=== PATIENT | female | born 1990 | race American Indian/Alaskan Native ===

== ENCOUNTER 2021-05-11 08:01 | Inpatient (IN) | payer SELFPAY ==
[2021-05-11] MEDS ORDERED: OXYTOCIN DRIP 30,000 MILLIUNITS/500 ML BAG IV ONE (08:24)
[2021-05-11] MEDS ORDERED: LACTATED RINGERS 1,000 ML ONE (08:24)
[2021-05-11] MEDS ORDERED: miSOPROStol 200 MCG TAB ONE ×2 (08:25→12:11)
[2021-05-11] MEDS ORDERED: CARBOPROST TROMETHAMINE 250 MCG/1 ML INJ IM PRN (08:44)
[2021-05-11] MEDS ORDERED: ePHEDrine SULFATE 50 MG/1 ML INJ IV PRN (08:44)
[2021-05-11] MEDS ORDERED: OXYTOCIN 10 UNIT/1 ML INJ IM PRN (08:44)
[2021-05-11] MEDS ORDERED: fentaNYL 100 MCG/2 ML INJ IV PRN (08:44)
[2021-05-11] MEDS ORDERED: ACETAMINOPHEN 325 MG TAB PO PRN (08:44)
[2021-05-11] MEDS ORDERED: AMPICILLIN/NS 2 GM/100 ML 2 GM/100 ML BAG IV ONE (08:44)
[2021-05-11] MEDS ORDERED: LIDOCAINE (2%) 20 MG/1 ML VIAL 20 ML MDV INFILTRATI ONE (08:44)
[2021-05-11] MEDS ORDERED: miSOPROStol 200 MCG TAB PR PRN (08:44)
[2021-05-11] MEDS ORDERED: TERBUTALINE 1 MG/1 ML INJ SUB-Q PRN (08:44)
[2021-05-11] MEDS ORDERED: METHYLERGONOVINE MALEATE 0.2 MG/ML VIAL IM PRN (08:44)
[2021-05-11] MEDS ORDERED: LOPERAMIDE 2 MG CAP PO PRN (08:44)
[2021-05-11] MEDS ORDERED: MINERAL OIL 30 ML ORAL LIQD PO PRN (08:44)
[2021-05-11] MEDS ORDERED: NalbUPHINE 10 MG/1 ML INJ IV PRN (08:44)
[2021-05-11] MEDS ORDERED: LACTATED RINGERS 1,000 ML IV SCH (08:45)
[2021-05-11] MEDS ORDERED: WITCH HAZEL/ GLYCERIN PAD TP PRN (08:53)
[2021-05-11] MEDS ORDERED: BENZOCAINE/MENTHOL 20/0.5% TOP SPRAY 56 GM TP PRN (08:53)
[2021-05-11] MEDS ORDERED: MAGNESIUM HYDROXIDE (MOM) ORAL LIQD UDC PO PRN (08:53)
[2021-05-11] MEDS ORDERED: ONDANSETRON 4 MG/2 ML INJ IV PRN (08:53)
[2021-05-11] MEDS ORDERED: LANOLIN/ZINC/DIMETHICONE (LANSINOH) 7 GM TP PRN ×2 (08:53)
--- NOTE | 2021-05-11 08:53 | Procedure Note ---
OB Delivery Note - Delivery Date of Delivery: 05/11/21 Surgeon: TORSTEN ONEILL Estimated blood loss: 500cc - Vaginal Delivery presentation: vertex Delivery position: OA Intrapartum events: labor-<37 weeks (NICU nurses report probable gestational age 36 weeks based on 's exam), preeclampsia, precipitous labor- <3hr, other(please specify) (probable placental abruption (large gush of blood at time of delivery of head and adherent clot seen on placenta at time of placental delivery) Delivery induction: none Delivery monitor: external FHT, external uterine Route of delivery: Delivery placenta: spontaneous (enlarged vessel noted on side of placenta near cord insertion into placenta) Delivery cord: 3 umbilical vessels Episiotomy: none Delivery laceration: 1st degree (not bleeding and patient declined repair) Anesthesia: none Delivery comments: Precipitous spontaneous vaginal delivery at 08:23 of liveborn female infant weighing 5 lb. over first degree perineal laceration with apgars of 8/9. Patient with elevated blood pressure upon presentation to L&D, advanced cervical dilation with urge to push, and no care. Small amount of vaginal bleeding seen just prior to delivery and large gush of blood accompanied delivery of head (probable placental abruption). of baby was atraumatic and baby was placed skin to skin with mom immediately after delivery. Baby was dried with warm towels and baby was bulb suctioned. Spontaneous cry and respirations. 3 vessel cord was double clamped and cut (delayed clamping) and baby was taken to radiant warmer for evaluation. Cord blood obtained. Spontaneous delivery of intact placenta and membranes at 08:26. Clot adherent to placenta noted at time of placental delivery. EBL 500 cc. Pitocin to IV fluids after delivery of placenta and cytotec 800 mcg given rectally to control bleeding. Fundus firm and midline at umbilicus. Small first degree perineal laceration noted; not bleeding and patient declined repair. Vaginal sweep negative. Sponge count correct. Magnesium sulfate started due to elevated blood pressure. UA, UDS, preeclamptic labs, and full panel ordered. Placenta to pathology. Consulted Dr. Baker re: this patient.
--- NOTE | 2021-05-11 08:53 | History and Physical Report ---
History of Present Illness Date of examination: 05/11/21 Date of admission: 05/11/21 08:01 Chief complaint: Contractions History of present illness: 30 year old presents in active precipitous labor. No care. Reports history of 2 FT vaginal births without complications. labs drawn upon admission. Past History Past Medical History: no pertinent history Past Surgical History: no surgical history [facility] RIDER History: denies: chlamydia, gonorrhea, hepatitis B, hepatitis C, herpes, HIV, syphilis, trichomonas Family/Genetic History: none Social history: lives with family, full code. denies: smoking, alcohol abuse, prescription drug abuse, IV drug use - Obstetrical History Expected Date of Delivery: 05/27/21 (patient states this EDC was given to her based on 33 week US done at [facility]) Actual Gestation: 37 Week(s) 5 Day(s) : 3 Para: 2 Hx # Term Pregnancies: 2 Number of Pregnancies: 0 Spontaneous Abortions: 0 Induced : 0 Number of Living Children: 2 Medications and Allergies Allergies Allergy/AdvReac Type Severity Reaction Status Date / Time No Known Allergies Allergy Verified 05/11/21 08:35 Active Meds: Active Medications Acetaminophen (Acetaminophen 325 Mg Tab) 650 mg PO Q4H PRN PRN Reason: Pain, Mild (1-3) Carboprost Tromethamine (Carboprost Tromethamine 250 Mcg/1 Ml Inj) 250 mcg IM ONCE PRN PRN Reason: Uterine Bleeding Ephedrine Sulfate (Ephedrine Sulfate 50 Mg/1 Ml Inj) 10 mg IV Q2M PRN PRN Reason: Hypotension Fentanyl (Fentanyl 100 Mcg/2 Ml Inj) 100 mcg IV Q2H PRN PRN Reason: Pain,Severe (7-10) LABOR PAIN Lactated Ringer's (Lactated Ringers) 1,000 mls @ 125 mls/hr IV DIRECT FRED Oxytocin/Sodium Chloride (Pitocin/Ns 30 Unit/500ml) 30 units in 500 mls @ 40 mls/hr IV TITR FRED; Protocol Ampicillin Sodium (Ampicillin/Ns 2 Gm/100 Ml) 2 gm in 100 mls @ 100 mls/hr IV ONCE ONE; Protocol Stop: 05/11/21 09:43 Lidocaine (Lidocaine (2%) 20 Mg/1 Ml Vial 20 Ml Mdv) 20 ml INFILTRATI ONCE ONE Stop: 05/11/21 08:45 Loperamide HCl (Loperamide 2 Mg Cap) 2 mg PO ONCE PRN PRN Reason: give with Hemabate Methylergonovine Maleate (Methylergonovine Maleate 0.2 Mg/Ml Vial) 0.2 mg IM ONCE PRN PRN Reason: Uterine Bleeding Mineral Oil (Mineral Oil 30 Ml Oral Liqd) 30 ml PO QHS PRN PRN Reason: Constipation Misoprostol (Misoprostol 200 Mcg Tab) 800 mcg NJ ONCE PRN PRN Reason: Uterine Bleeding Nalbuphine HCl (Nalbuphine 10 Mg/1 Ml Inj) 10 mg IV Q2H PRN PRN Reason: Pain, Moderate (4-6) Oxytocin (Oxytocin 10 Unit/1 Ml Inj) 10 unit IM ONCE PRN PRN Reason: Uterine Bleeding Terbutaline Sulfate (Terbutaline 1 Mg/1 Ml Inj) 0.25 mg SUB-Q ONCE PRN PRN Reason: Hyperstimulation/Hypertonicity Review of Systems All systems: negative (contractions, leaking of water while en route to hospital) - Vital Signs Vital signs: Vital Signs Pulse BP 103 H 163/111 05/11/21 08:09 05/11/21 08:09 Temp Pulse Resp BP Pulse Ox 66 149/87 99 05/11/21 08:50 05/11/21 08:50 05/11/21 08:50 - Physical Exam Abdomen: Positive: other (contractions firm) Genitourinary (Female): Positive: normal external genitalia, normal perenium. Negative: perineal/vulvar lesions Vagina: Positive: other (small amount of blood seen at introitus) Uterus: Positive: enlarged Anus/Rectum: Positive: normal perianal skin Extremities: Negative: tenderness, edema - Obstetrical FHR: category 2 Uterine Contraction Monitor Mode: External Cervical Dilatation: 9 Cervical Effacement Percentage: 90 station: 0 Uterine Contraction Pattern: Regular Uterine Contraction Intensity: Strong/Firm Results All other labs normal. Assessment and Plan A: of unknown gestation, delivered soon after arrival in labor room. Active labor with delivery imminent. No care. GBS unknown. Elevated blood pressure. P: Admit. Full panel, preeclamptic labs, drug screen. Serial BPs. Magnesium sulfate per protocol. GBS prophylaxis (2 gram ampicillin IV) started before delivery.
[2021-05-11] MEDS ORDERED: OXYTOCIN DRIP 30 UNITS/500 ML BAG IV SCH (09:00)
[2021-05-11] MEDS ORDERED: MAGNESIUM SULFATE 4 GM/100 ML BAG IV ONE (09:14)
[2021-05-11] MEDS ORDERED: MAGNESIUM SULFATE 40GM/1000ML 40 GM/1,000 ML BAG IV SCH (10:00)
[2021-05-11 10:29] LABS: Hematocrit 39.2 % (30.3-42.9); Mean Corpuscular HGB Conc 33 % (30-34); Mean Corpuscular Volume 90 fl (79-97); Platelet Count 212 K/mm3 (140-440); Red Blood Count 4.35 M/mm3 (3.65-5.03); Red Cell Distribution Width 13.2 % (13.2-15.2)
[2021-05-11 10:38] LABS: Alanine Aminotransferase 6 units/L (7-56); Albumin 3.4 g/dL (3.9-5); Blood Urea Nitrogen 9 mg/dL (7-17); Hemolysis Index 76; Uric Acid 3.3 mg/dL (3.5-7.6)
[2021-05-11 10:39] LABS: BUN/Creatinine Ratio 13
--- NOTE | 2021-05-11 11:08 | Event Note ---
<MAITORSTEN L. - Last Filed: 05/11/21 12:26> Date: 05/11/21 Called to room; nurse states patient is bleeding. Large amount of lochia rubra seen on chux pad. Fundus firm and midline at umbilicus. Garay is in place and is draining clear yellow urine. Stat H&H and stat pelvic US ordered. Patient has received Cytotec 800 mcg rectally, Pitocin IV (she is on second bag of Pitocin). Hemabate and IM Methergine given. Magnesium sulfate turned off. SSE exam performed; no cervical laceration noted. Notified Dr. Li of all of the above and Dr. Li states to put patient on oral Methergine 0.2 mg po every 8 hours (order put in). Patient continued to have bleeding; bimanual compression done. Fundus firm and midline; clots in BUCK removed. EBL [address] Li called due to continued bleeding and she came to bedside and she also examined patient. Cytotec 200 mcg given orally. Patient now has small amount of lochia, fundus is firm, and vital signs are stable. Patient to remain on L&D overnight. <ANGEL LI - Last Filed: 05/11/21 17:31> I was present for full evaluation and agree with above. Pt hemodynamically stable, suspect lower uterine segment atony. Kenneth Li MD
[2021-05-11] MEDS: IBUPROFEN 800 MG TAB PO SCH ×2 (11:33→20:55)
[2021-05-11 11:53] LABS: Hematocrit 34.6 % (30.3-42.9); Hemoglobin 11.1 gm/dl (10.1-14.3)
[2021-05-11 11:56] LABS: Hepatitis C Virus Antibody Non-Reactive (NonReactive)
[2021-05-11] MEDS ORDERED: MORPHINE 2 MG/1 ML INJ IV ONE ×2 (12:00→12:07)
[2021-05-11] MEDS ORDERED: METHYLERGONOVINE MALEATE 0.2 MG/ML VIAL IM ONE (12:00)
[2021-05-11] MEDS ORDERED: SODIUM CHLORIDE 0.9% 500 ML 500 ML IV NR (12:00)
[2021-05-11 12:03] LABS: Bilirubin,Urine NEG (Negative); Blood,Urine MOD (Negative); Color,Urine Yellow (Yellow); Mucus,Urine FEW /HPF; Protein,Urine <15 mg/dL mg/dL (Negative)
[2021-05-11 12:08] LABS: Amphetamine Screen,Urine Negative; Benzodiazepines Screen,Urine Negative; Cannabinoid Screen,Urine Negative; Methadone Screen,Urine Negative; Opiate Screen,Urine Negative
--- NOTE | 2021-05-11 12:17 | Ultrasound Report ---
ULTRASOUND PELVIS INDICATION: hemorrhage. TECHNIQUE: Transabdominal. Duplex Color Doppler used: Yes. COMPARISON: None available FINDINGS: Uterus: Present. Size: 22.1 x 11.7 x 11.5. cm. Endometrial complex: Normal measuring 0.5 cm. Complex area at the lower uterine segment measuring 8.2 x 6.8 x 6 cm. Mass lesions: None. Additional findings: None. Right Ovary --nonvisualized. Left Ovary--nonvisualized. Urinary Bladder: Normal. Free Fluid: None. Additional Findings: None. IMPRESSION: 1. Large, uterus. 2. Complex area at the lower uterine segment is likely a large blood clot unless the patient has a kn own fibroid. 3. Ovaries nonvisualized. No gross adnexal abnormality. Signer Name: James Vasquez MD Signed: 05/11/2021 12:12 PM Workstation Name: [id number]
[2021-05-11 12:29] LABS: Cocaine Screen,Urine Positive
[2021-05-11] MEDS: METHYLERGONOVINE 0.2 MG TABLET PO SCH (20:55)
[2021-05-11 20:59] LABS: Hematocrit 31.9 % (30.3-42.9); Hemoglobin 10.5 gm/dl (10.1-14.3)
[2021-05-11] MEDS ORDERED: HYDROcodone/ACETAMINOPHEN 5-325 MG TAB PO PRN (22:03)
[2021-05-11] MEDS: DOCUSATE SODIUM 100 MG CAP PO SCH (22:55)
[2021-05-11] MEDS: FERROUS SULFATE 325 MG TAB PO SCH (22:55)
[2021-05-12] MEDS: IBUPROFEN 800 MG TAB PO SCH ×4 (05:15→21:58)
[2021-05-12] MEDS: METHYLERGONOVINE 0.2 MG TABLET PO SCH ×3 (05:15→21:58)
--- NOTE | 2021-05-12 09:34 | Progress Note ---
Assessment and Plan PPD#1 with PPH, with asymptomatic anemia, currently on oral methergine 1. Repeat CBC for trends of hgb and wbc 2. Repeat u/s with large 8cm mass to lower uterine segment seen yesterday 3. Continue methergine for now 4. Routine PP care and discharge home in am. All questions encouraged and answered Subjective Date of service: 05/12/21 Principal diagnosis: PPD#1 with PPH Interval history: pt states she feels much better, her vag bleed has improved a lot. Denies pelvic pain. pt is breast feeding. Declines contraception. Voiding without difficulty. Denies n/v/f/c. Objective - Constitutional Vitals: Vital Signs - 12hr 05/11/21 05/11/21 05/11/21 21:31 21:32 21:35 Temperature Pulse Rate 80 80 76 Blood Pressure 125/75 O2 Sat by Pulse 99 92 Oximetry O2 Sat by Pulse Oximetry [ Anterior Bilateral Throughout] 05/11/21 05/11/21 05/11/21 21:36 21:37 21:41 Temperature Pulse Rate 78 82 66 Blood Pressure O2 Sat by Pulse 96 89 100 Oximetry O2 Sat by Pulse Oximetry [ Anterior Bilateral Throughout] 05/11/21 05/11/21 05/11/21 21:45 21:46 21:51 Temperature Pulse Rate 68 71 73 Blood Pressure 124/75 O2 Sat by Pulse 100 99 Oximetry O2 Sat by Pulse Oximetry [ Anterior Bilateral Throughout] 05/11/21 05/11/21 05/11/21 21:55 21:56 22:01 Temperature Pulse Rate 73 70 73 Blood Pressure 128/79 O2 Sat by Pulse 99 99 Oximetry O2 Sat by Pulse Oximetry [ Anterior Bilateral Throughout] 05/11/21 05/11/21 05/11/21 22:05 22:06 22:11 Temperature Pulse Rate 71 75 74 Blood Pressure 125/79 O2 Sat by Pulse 99 98 Oximetry O2 Sat by Pulse Oximetry [ Anterior Bilateral Throughout] 05/11/21 05/11/21 05/11/21 22:15 22:16 22:21 Temperature Pulse Rate 71 70 70 Blood Pressure 124/77 O2 Sat by Pulse 98 98 Oximetry O2 Sat by Pulse Oximetry [ Anterior Bilateral Throughout] 05/11/21 05/11/21 05/11/21 22:25 22:26 22:31 Temperature Pulse Rate 72 73 67 Blood Pressure 137/80 O2 Sat by Pulse 98 98 Oximetry O2 Sat by Pulse Oximetry [ Anterior Bilateral Throughout] 05/11/21 05/11/21 05/11/21 22:35 22:36 22:41 Temperature Pulse Rate 71 74 85 Blood Pressure 171/81 O2 Sat by Pulse 98 98 Oximetry O2 Sat by Pulse Oximetry [ Anterior Bilateral Throughout] 05/11/21 05/11/21 05/11/21 22:45 22:46 22:51 Temperature Pulse Rate 88 86 75 Blood Pressure 127/85 O2 Sat by Pulse 98 99 Oximetry O2 Sat by Pulse Oximetry [ Anterior Bilateral Throughout] 05/11/21 05/11/21 05/11/21 22:55 22:56 23:01 Temperature Pulse Rate 63 67 71 Blood Pressure 137/80 O2 Sat by Pulse 99 99 Oximetry O2 Sat by Pulse Oximetry [ Anterior Bilateral Throughout] 05/11/21 05/11/21 05/11/21 23:05 23:06 23:11 Temperature Pulse Rate 69 69 74 Blood Pressure 126/74 O2 Sat by Pulse 99 99 Oximetry O2 Sat by Pulse Oximetry [ Anterior Bilateral Throughout] 05/11/21 05/11/21 05/11/21 23:15 23:16 23:21 Temperature Pulse Rate 71 74 72 Blood Pressure 118/68 O2 Sat by Pulse 99 99 Oximetry O2 Sat by Pulse Oximetry [ Anterior Bilateral Throughout] 05/11/21 05/11/21 05/11/21 23:25 23:26 23:31 Temperature Pulse Rate 72 71 73 Blood Pressure 129/76 O2 Sat by Pulse 99 98 Oximetry O2 Sat by Pulse Oximetry [ Anterior Bilateral Throughout] 05/11/21 05/11/21 05/11/21 23:35 23:36 23:41 Temperature Pulse Rate 71 70 74 Blood Pressure 120/66 O2 Sat by Pulse 99 99 Oximetry O2 Sat by Pulse Oximetry [ Anterior Bilateral Throughout] 05/11/21 05/11/21 05/11/21 23:45 23:46 23:51 Temperature Pulse Rate 69 68 82 Blood Pressure 128/69 O2 Sat by Pulse 99 99 Oximetry O2 Sat by Pulse Oximetry [ Anterior Bilateral Throughout] 05/11/21 05/11/21 05/12/21 23:55 23:56 00:01 Temperature Pulse Rate 73 77 67 Blood Pressure 125/73 O2 Sat by Pulse 99 100 Oximetry O2 Sat by Pulse Oximetry [ Anterior Bilateral Throughout] 05/12/21 05/12/21 05/12/21 00:05 00:06 00:11 Temperature Pulse Rate 65 68 71 Blood Pressure 128/67 O2 Sat by Pulse 99 99 Oximetry O2 Sat by Pulse Oximetry [ Anterior Bilateral Throughout] 05/12/21 05/12/21 05/12/21 00:15 00:16 00:21 Temperature Pulse Rate 69 72 71 Blood Pressure 132/68 O2 Sat by Pulse 99 99 Oximetry O2 Sat by Pulse Oximetry [ Anterior Bilateral Throughout] 05/12/21 05/12/21 05/12/21 00:25 00:26 00:31 Temperature Pulse Rate 73 75 84 Blood Pressure 149/73 O2 Sat by Pulse 100 99 Oximetry O2 Sat by Pulse Oximetry [ Anterior Bilateral Throughout] 05/12/21 05/12/21 05/12/21 00:35 00:36 00:41 Temperature Pulse Rate 69 70 65 Blood Pressure 133/81 O2 Sat by Pulse 98 99 Oximetry O2 Sat by Pulse Oximetry [ Anterior Bilateral Throughout] 05/12/21 05/12/21 05/12/21 00:45 00:46 00:51 Temperature Pulse Rate 68 66 70 Blood Pressure 127/65 O2 Sat by Pulse 99 99 Oximetry O2 Sat by Pulse Oximetry [ Anterior Bilateral Throughout] 05/12/21 05/12/21 05/12/21 00:55 00:56 01:01 Temperature Pulse Rate 70 71 74 Blood Pressure 127/69 O2 Sat by Pulse 99 99 Oximetry O2 Sat by Pulse Oximetry [ Anterior Bilateral Throughout] 05/12/21 05/12/21 05/12/21 01:05 01:06 01:11 Temperature Pulse Rate 70 92 H 87 Blood Pressure 117/65 O2 Sat by Pulse 98 98 Oximetry O2 Sat by Pulse Oximetry [ Anterior Bilateral Throughout] 05/12/21 05/12/21 05/12/21 01:15 01:16 01:21 Temperature Pulse Rate 90 91 H 102 H Blood Pressure 115/72 O2 Sat by Pulse 98 99 Oximetry O2 Sat by Pulse Oximetry [ Anterior Bilateral Throughout] 05/12/21 05/12/21 05/12/21 01:26 01:31 01:35 Temperature Pulse Rate 90 86 66 Blood Pressure O2 Sat by Pulse 99 98 82 L Oximetry O2 Sat by Pulse Oximetry [ Anterior Bilateral Throughout] 05/12/21 05/12/21 05/12/21 01:36 01:41 01:45 Temperature Pulse Rate 88 88 88 Blood Pressure 135/80 O2 Sat by Pulse 100 100 Oximetry O2 Sat by Pulse Oximetry [ Anterior Bilateral Throughout] 05/12/21 05/12/21 05/12/21 01:46 01:51 01:55 Temperature Pulse Rate 89 89 85 Blood Pressure 114/73 O2 Sat by Pulse 98 99 Oximetry O2 Sat by Pulse Oximetry [ Anterior Bilateral Throughout] 05/12/21 05/12/21 05/12/21 01:56 02:01 02:05 Temperature Pulse Rate 87 87 93 H Blood Pressure 118/86 O2 Sat by Pulse 97 98 Oximetry O2 Sat by Pulse Oximetry [ Anterior Bilateral Throughout] 05/12/21 05/12/21 05/12/21 02:06 02:11 02:15 Temperature Pulse Rate 89 79 67 Blood Pressure 122/72 O2 Sat by Pulse 98 97 Oximetry O2 Sat by Pulse Oximetry [ Anterior Bilateral Throughout] 05/12/21 05/12/21 05/12/21 02:16 02:19 02:21 Temperature Pulse Rate 81 42 L 71 Blood Pressure O2 Sat by Pulse 99 90 99 Oximetry O2 Sat by Pulse Oximetry [ Anterior Bilateral Throughout] 05/12/21 05/12/21 05/12/21 02:25 02:26 02:31 Temperature Pulse Rate 82 69 76 Blood Pressure 123/78 O2 Sat by Pulse 100 99 Oximetry O2 Sat by Pulse Oximetry [ Anterior Bilateral Throughout] 05/12/21 05/12/21 05/12/21 02:35 02:36 02:41 Temperature Pulse Rate 74 74 76 Blood Pressure 128/76 O2 Sat by Pulse 99 99 Oximetry O2 Sat by Pulse Oximetry [ Anterior Bilateral Throughout] 05/12/21 05/12/21 05/12/21 02:45 02:46 02:51 Temperature Pulse Rate 77 74 77 Blood Pressure 121/76 O2 Sat by Pulse 100 99 Oximetry O2 Sat by Pulse Oximetry [ Anterior Bilateral Throughout] 05/12/21 05/12/21 05/12/21 02:55 02:56 03:01 Temperature Pulse Rate 86 72 83 Blood Pressure 129/78 O2 Sat by Pulse 100 99 Oximetry O2 Sat by Pulse Oximetry [ Anterior Bilateral Throughout] 05/12/21 05/12/21 05/12/21 03:05 03:06 03:11 Temperature Pulse Rate 75 85 71 Blood Pressure 143/85 O2 Sat by Pulse 98 98 Oximetry O2 Sat by Pulse Oximetry [ Anterior Bilateral Throughout] 05/12/21 05/12/21 05/12/21 03:15 03:16 03:21 Temperature Pulse Rate 72 78 76 Blood Pressure 127/73 O2 Sat by Pulse 99 98 Oximetry O2 Sat by Pulse Oximetry [ Anterior Bilateral Throughout] 05/12/21 05/12/21 05/12/21 03:25 03:26 03:31 Temperature Pulse Rate 73 77 76 Blood Pressure 124/72 O2 Sat by Pulse 98 99 Oximetry O2 Sat by Pulse Oximetry [ Anterior Bilateral Throughout] 05/12/21 05/12/21 05/12/21 03:35 03:36 03:41 Temperature Pulse Rate 74 71 80 Blood Pressure 119/75 O2 Sat by Pulse 99 98 Oximetry O2 Sat by Pulse Oximetry [ Anterior Bilateral Throughout] 05/12/21 05/12/21 05/12/21 03:45 03:46 03:51 Temperature Pulse Rate 80 84 83 Blood Pressure 119/74 O2 Sat by Pulse 98 97 Oximetry O2 Sat by Pulse Oximetry [ Anterior Bilateral Throughout] 05/12/21 05/12/21 05/12/21 03:55 03:56 04:01 Temperature Pulse Rate 79 86 93 H Blood Pressure 125/74 O2 Sat by Pulse 97 97 Oximetry O2 Sat by Pulse Oximetry [ Anterior Bilateral Throughout] 05/12/21 05/12/21 05/12/21 04:05 04:06 04:11 Temperature Pulse Rate 91 H 100 H 93 H Blood Pressure 121/71 O2 Sat by Pulse 94 98 97 Oximetry O2 Sat by Pulse Oximetry [ Anterior Bilateral Throughout] 05/12/21 05/12/21 05/12/21 04:15 04:16 04:21 Temperature Pulse Rate 88 90 89 Blood Pressure 119/70 O2 Sat by Pulse 97 98 Oximetry O2 Sat by Pulse Oximetry [ Anterior Bilateral Throughout] 05/12/21 05/12/21 05/12/21 04:25 04:26 04:31 Temperature Pulse Rate 88 91 H 94 H Blood Pressure 116/68 O2 Sat by Pulse 92 98 98 Oximetry O2 Sat by Pulse Oximetry [ Anterior Bilateral Throughout] 05/12/21 05/12/21 05/12/21 04:35 04:36 04:41 Temperature Pulse Rate 76 80 80 Blood Pressure 117/67 O2 Sat by Pulse 98 99 Oximetry O2 Sat by Pulse Oximetry [ Anterior Bilateral Throughout] 05/12/21 05/12/21 05/12/21 04:45 04:46 04:51 Temperature Pulse Rate 82 87 91 H Blood Pressure 108/63 O2 Sat by Pulse 99 99 Oximetry O2 Sat by Pulse Oximetry [ Anterior Bilateral Throughout] 05/12/21 05/12/21 05/12/21 04:55 04:56 05:01 Temperature 99.0 F Pulse Rate 88 90 84 Blood Pressure 117/62 O2 Sat by Pulse 99 99 Oximetry O2 Sat by Pulse Oximetry [ Anterior Bilateral Throughout] 05/12/21 05/12/21 05/12/21 05:05 05:06 05:11 Temperature Pulse Rate 76 72 79 Blood Pressure 130/89 O2 Sat by Pulse 100 100 Oximetry O2 Sat by Pulse Oximetry [ Anterior Bilateral Throughout] 05/12/21 05/12/21 05/12/21 05:15 05:16 05:21 Temperature Pulse Rate 84 87 95 H Blood Pressure 114/68 O2 Sat by Pulse 100 100 Oximetry O2 Sat by Pulse Oximetry [ Anterior Bilateral Throughout] 05/12/21 05/12/21 05/12/21 05:25 05:26 05:31 Temperature Pulse Rate 78 83 85 Blood Pressure 120/72 O2 Sat by Pulse 99 99 Oximetry O2 Sat by Pulse Oximetry [ Anterior Bilateral Throughout] 05/12/21 05/12/21 05/12/21 05:35 05:36 05:41 Temperature Pulse Rate 86 84 84 Blood Pressure 109/63 O2 Sat by Pulse 99 99 Oximetry O2 Sat by Pulse Oximetry [ Anterior Bilateral Throughout] 05/12/21 05/12/21 05/12/21 05:45 05:46 05:51 Temperature Pulse Rate 76 83 85 Blood Pressure 108/66 O2 Sat by Pulse 100 100 Oximetry O2 Sat by Pulse Oximetry [ Anterior Bilateral Throughout] 05/12/21 05/12/21 05/12/21 05:55 05:56 06:01 Temperature Pulse Rate 83 87 87 Blood Pressure 127/73 O2 Sat by Pulse 100 100 Oximetry O2 Sat by Pulse Oximetry [ Anterior Bilateral Throughout] 05/12/21 05/12/21 05/12/21 06:05 06:06 06:11 Temperature Pulse Rate 76 82 81 Blood Pressure 124/73 O2 Sat by Pulse 99 100 Oximetry O2 Sat by Pulse Oximetry [ Anterior Bilateral Throughout] 05/12/21 05/12/21 05/12/21 06:15 06:16 06:21 Temperature Pulse Rate 73 75 83 Blood Pressure 124/75 O2 Sat by Pulse 99 100 Oximetry O2 Sat by Pulse Oximetry [ Anterior Bilateral Throughout] 05/12/21 05/12/21 05/12/21 06:25 06:26 06:31 Temperature Pulse Rate 71 83 79 Blood Pressure 123/75 O2 Sat by Pulse 99 99 Oximetry O2 Sat by Pulse Oximetry [ Anterior Bilateral Throughout] 05/12/21 05/12/21 05/12/21 06:35 06:36 06:41 Temperature Pulse Rate 80 86 80 Blood Pressure 138/82 O2 Sat by Pulse 100 99 Oximetry O2 Sat by Pulse Oximetry [ Anterior Bilateral Throughout] 05/12/21 05/12/21 05/12/21 06:45 06:46 06:51 Temperature Pulse Rate 81 91 H 77 Blood Pressure 138/92 O2 Sat by Pulse 100 100 Oximetry O2 Sat by Pulse Oximetry [ Anterior Bilateral Throughout] 05/12/21 05/12/21 05/12/21 06:55 06:56 07:01 Temperature Pulse Rate 91 H 97 H 92 H Blood Pressure 118/81 O2 Sat by Pulse 97 97 Oximetry O2 Sat by Pulse Oximetry [ Anterior Bilateral Throughout] 05/12/21 05/12/21 05/12/21 07:05 07:06 07:11 Temperature Pulse Rate 104 H 96 H 94 H Blood Pressure 119/86 O2 Sat by Pulse 91 99 99 Oximetry O2 Sat by Pulse Oximetry [ Anterior Bilateral Throughout] 05/12/21 05/12/21 05/12/21 07:15 07:16 07:21 Temperature Pulse Rate 86 107 H 91 H Blood Pressure 125/88 O2 Sat by Pulse 94 98 98 Oximetry O2 Sat by Pulse 98 Oximetry [ Anterior Bilateral Throughout] 05/12/21 07:25 Temperature Pulse Rate 93 H Blood Pressure 114/74 O2 Sat by Pulse 94 Oximetry O2 Sat by Pulse Oximetry [ Anterior Bilateral Throughout] General appearance: Present: no acute distress - Neck Neck: normal ROM - Respiratory Respiratory effort: normal - Breasts Breasts: deferred - Cardiovascular Rhythm: other (mild tacchycardia) Extremities: No edema - Gastrointestinal General gastrointestinal: Present: soft, non-tender - Genitourinary Female genitourinary: other (Fundus firm, non-tender at the umbilicus; Lochia small with dark brown, non-active bleed) - Neurologic Neurologic: moves all extremities - Psychiatric Psychiatric: cooperative - Labs CBC & Chem 7: 05/11/21 20:32 05/11/21 08:30 Labs: Abnormal lab results 05/11/21 05/11/21 05/11/21 Range/Units 08:19 08:30 11:29 WBC 11.2 H (4.5-11.0) K/mm3 Carbon Dioxide 17 L (22-30) mmol/L Uric Acid 3.3 L (3.5-7.6) mg/dL ALT 6 L (7-56) units/L Alkaline Phosphatase 163 H (35-129) units/L Lactate Dehydrogenase 359 H (91-180) units/L Albumin 3.4 L (3.9-5) g/dL Crossmatch See Detail Medications & Allergies - Medications Allergies/Adverse Reactions: Allergies No Known Allergies Allergy (Verified 05/11/21 08:35) Active Medications: Generic Name Dose Route Start Last Admin Trade Name Freq PRN Reason Stop Dose Admin Acetaminophen 650 mg 05/11/21 08:44 Acetaminophen 325 Mg Tab PO Q4H PRN Pain, Mild (1-3) Hydrocodone Bitart/Acetaminophen 1 each 05/11/21 22:03 Hydrocodone/Acetaminophen 5-325 Mg Tab PO Q6H PRN Pain, Moderate (4-6) Benzocaine/Menthol 1 spray 05/11/21 08:53 Benzocaine/Menthol 20/0.5% Top [place] 56 Gm TP PRN PRN Episiotomy Pain Docusate Sodium 100 mg 05/11/21 10:00 05/11/21 22:55 Docusate Sodium 100 Mg Cap PO 100 mg BID FRED Administration Ferrous Sulfate 325 mg 05/11/21 13:00 05/11/21 22:55 Ferrous Sulfate 325 Mg Tab PO 325 mg BID FRED Administration Oxytocin/Sodium Chloride 30 units in 500 mls @ 40 mls/hr 05/11/21 09:00 05/11/21 09:35 Pitocin/Ns 30 Unit/500ml IV 60 mls/hr TITR FRED 60 mls/hr Administration Protocol Ibuprofen 800 mg 05/11/21 09:00 05/12/21 05:15 Ibuprofen 800 Mg Tab PO 800 mg Q6H FRED Administration Labetalol HCl 100 mg 05/11/21 10:00 05/12/21 00:35 Labetalol 100 Mg Tab PO 100 mg BID FRED Administration Methylergonovine Maleate 0.2 mg 05/11/21 19:00 05/12/21 05:15 Methylergonovine 0.2 Mg Tablet PO 05/13/21 11:01 0.2 mg Q8H FRED Administration Multi-Ingredient Ointment 1 applic 05/11/21 08:53 Lanolin/Zinc/Dimethicone (Lansinoh) 7 Gm TP PRN PRN Sore Nipples Multivitamins/Iron/Calcium 1 each 05/11/21 10:00 [id number] Fumarate-Folic Acid Vit Tab PO QDAY [facility] Ondansetron HCl 4 mg 05/11/21 08:53 05/11/21 11:12 Ondansetron 4 Mg/2 Ml Inj IV 4 mg Q8H PRN Administration Nausea And Vomiting Oxytocin 10 unit 05/11/21 08:44 Oxytocin 10 Unit/1 Ml Inj IM ONCE PRN Uterine Bleeding Sodium Chloride 10 ml 05/11/21 09:00 Sodium Chloride 0.9% 10 Ml Flush Syringe IV 05/19/21 08:59 PRN NR Witch Bettina/Glycerin 1 each 05/11/21 08:53 Witch Bettina/ Glycerin Pad TP PRN PRN Hemorrhoid/cleansing/soothing
[2021-05-12] MEDS: FERROUS SULFATE 325 MG TAB PO SCH ×2 (11:55→21:58)
[2021-05-12] MEDS: PRENATAL VIT27-FE FUMARATE-FOLIC ACID VIT TAB PO SCH (11:55)
[2021-05-12] MEDS: DOCUSATE SODIUM 100 MG CAP PO SCH ×2 (11:55→21:58)
[2021-05-12 13:16] LABS: Basophils % (Auto) 0.2 % (0.0-1.8); Eosinophils # (Auto) 0.1 K/mm3 (0.0-0.4); Eosinophils % (Auto) 0.6 % (0.0-4.3); Hematocrit 29.6 % (30.3-42.9); Hemoglobin 9.6 gm/dl (10.1-14.3); Lymphocytes % (Auto) 22.9 % (13.4-35.0); Mean Corpuscular HGB Conc 32 % (30-34); Mean Corpuscular Volume 91 fl (79-97); Monocytes # (Auto) 0.8 K/mm3 (0.0-0.8); Monocytes % (Auto) 6.3 % (0.0-7.3); Platelet Count 179 K/mm3 (140-440); Red Blood Count 3.24 M/mm3 (3.65-5.03); Red Cell Distribution Width 13.5 % (13.2-15.2)
--- NOTE | 2021-05-12 13:58 | Ultrasound Report ---
ULTRASOUND PELVIS INDICATION / CLINICAL INFORMATION: PPD#1, PPH, with 8x6cm mass lower seg on 05/11; F/U. TECHNIQUE: Transabdominal. Duplex Color Doppler used: Yes. COMPARISON: None available FINDINGS: UTERUS: Uterus measures 20.2 cm in length. There is complex heterogeneous area the lower uterine segm ent which measures approximately 7.4 x 4 x 4.8 cm this measures slightly smaller. Some of the differ ence in measurements may be due to technical differences between the 2 exams rather than a true head e in size. No Doppler signal was seen within this. RIGHT ADNEXA: No significant ovarian cyst or mass. Normal color Doppler blood flow. LEFT ADNEXA: No significant ovarian cyst or mass. Normal color Doppler blood flow. URINARY BLADDER: No significant abnormality. FREE FLUID: There is a minimal amount of free fluid in the region of left adnexa. ADDITIONAL FINDINGS: None. IMPRESSION: 1. There is persistent complex structure in the lower uterine segment this measures slightly smaller which may be due to technical differences between the 2 exams. In this recently patient th is likely represents a large clot. Signer Name: Ian Kelly MD Signed: 05/12/2021 1:53 PM Workstation Name: [id number]
[2021-05-13] MEDS: IBUPROFEN 800 MG TAB PO SCH ×3 (05:38→21:27)
[2021-05-13] MEDS: METHYLERGONOVINE 0.2 MG TABLET PO SCH ×2 (09:39→16:52)
[2021-05-13] MEDS: FERROUS SULFATE 325 MG TAB PO SCH ×2 (09:41→21:26)
[2021-05-13] MEDS: DOCUSATE SODIUM 100 MG CAP PO SCH ×2 (09:41→21:26)
[2021-05-13] MEDS: PRENATAL VIT27-FE FUMARATE-FOLIC ACID VIT TAB PO SCH (09:42)
--- NOTE | 2021-05-13 09:43 | Discharge Summary ---
Providers - Providers Date of Admission: 05/11/21 08:01 Date of discharge: 05/13/21 Attending physician: ANGEL LI MD 05/11/21 12:50 Consult to Case Management [CONS] Routine Services Needed at Discharge: Data Capture Specialist Notified:: computer input Phone number called:: [phone] Was contact made?: No Time called:: 08:42 Comment:: Positive drug screen (cocaine); no care Additional Physician Instructions: computer input Primary care physician: ANGEL LI MD Hospitalization Reason for admission: active labor, IUP at term Delivery: Episiotomy: none Laceration: 1st degree Incision: normal, intact Other procedures: none complications: other (Delayed PPH. US was obtained for 8cm mass noted to lower uterine seg ) Discharge diagnosis: IUP at term delivered baby: female Hospital course: Pt was admitted to [facility] and had a precipitous delivery. She tested pos for cocaine. Pt dev a delayed PPH which was managed with methergine, Hemabate, and cytotec. A 8cm mass in pt's lower uterine seg was discovered per us. Pt was d/cd home in stable condition per MD 's orders. She was advised to f/u on her uterine mass with an OBGYN elder. Condition at discharge: Stable Disposition: 01 HOME / SELF CARE / HOMELESS Plan - Discharge Medications Prescriptions: Ferrous Sulfate [Feosol 325 MG tab] 325 mg PO BID #90 tablet labetaloL [Labetalol 100mg TAB] 100 mg PO BID #90 tablet Ibuprofen [Motrin 800 MG tab] 800 mg PO Q6H PRN #30 tablet PRN Reason: Menstrual Cramps Vit-Fe Fumar-FA [ Vitamin] 1 each PO QDAY #90 tablet - Provider Discharge Summary Activity: routine, no sex for 6 weeks, no heavy lifting 4 weeks, no strenuous exercise Diet: routine Instructions: routine Additional instructions: [] Smoking cessation referral if applicable(refer to patient education folder for contact #) [] Refer to [facility] Booklet Call your doctor immediately for: * Fever > 100.5 * Heavy vaginal bleeding ( >1 pad per hour) * Severe persistent headache * Shortness of breath * Reddened, hot, painful area to leg or breast * Drainage or odor from incision. * Keep incision clean and dry at all times and follow doctor's instructions regarding bathing/showering - Follow up plan Follow up: ANGEL LI MD [Primary Care Provider] - 6 Weeks
[2021-05-13] MEDS ORDERED: METHYLERGONOVINE 0.2 MG TABLET PO ONE (17:00)
[2021-05-14] MEDS: IBUPROFEN 800 MG TAB PO SCH (04:58)
[2021-05-14] MEDS: PRENATAL VIT27-FE FUMARATE-FOLIC ACID VIT TAB PO SCH (10:34)
[2021-05-14] MEDS: DOCUSATE SODIUM 100 MG CAP PO SCH (10:34)
[2021-05-14] MEDS: FERROUS SULFATE 325 MG TAB PO SCH (10:34)
--- NOTE | 2021-05-14 10:50 | Progress Note ---
Subjective - Subjective Date of service: 05/14/21 Principal diagnosis: PPD#3 with PPH Interval history: stable for dc home Hb stable pt had PP lower uterine segment atony: sospect pt has large clot in lower uterine sement Will monitor PP Kenneth Baker MD Patient reports: appetite normal, voiding normally, pain well controlled, ambulating normally [place]: doing well Objective - Vital Signs Latest vital signs: Vital Signs Temp Pulse Resp BP Pulse Ox Pulse Ox 05/14/21 10:34 75 120/83 05/14/21 08:28 100 05/14/21 08:20 98.0 F 75 18 120/83 98 05/14/21 04:58 18 05/14/21 00:24 98.6 F 71 20 136/74 99 05/13/21 22:27 18 05/13/21 21:27 86 18 121/86 05/13/21 21:25 88 121/86 100 05/13/21 20:00 100 05/13/21 15:09 98.4 F 73 18 126/76 99 05/13/21 11:05 98.3 F 71 18 107/61 97 Intake and Output 05/13/21 05/14/21 05/14/21 23:59 07:59 15:59 Intake Total 480 Balance 480 Intake: Oral 480 Other: Total, Intake Amount 360 # Voids Void 1 1
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
[2021-05-14 19:06] VITALS: BP 118/83
== END 2021-05-14 14:30 | disposition home or self-care (01) | DRG 805 ==
LOC: LD 08:01 → OB 05-12 07:38
PROVIDERS: ADMIT Obstetrics & Gynecology; ATTEND Obstetrics & Gynecology
PROC: 10E0XZZ Delivery of Products of Conception, External Approach (ICD-10-PCS; principal; 2021-05-11)
PROC: 0HQ9XZZ Repair Perineum Skin, External Approach (ICD-10-PCS; 2021-05-11)
DX: O60.14X0 Preterm labor third trimester with preterm delivery third trimester, not applicable or unspecified (principal); O45.93 Premature separation of placenta, unspecified, third trimester; Z37.0 Single live birth; Z3A.36 36 weeks gestation of pregnancy; O70.0 First degree perineal laceration during delivery; Z20.822 Contact with and (suspected) exposure to COVID-19; O60.23X0 Term delivery with preterm labor, third trimester, not applicable or unspecified; O14.94 Unspecified pre-eclampsia, complicating childbirth; O62.3 Precipitate labor; Z3A.37 37 weeks gestation of pregnancy; O90.81 Anemia of the puerperium
CPT/HCPCS: 36415; 76856; 76857; 80053; 80307; 81001; 83615; 84550; 85014; 85018; 85025; 85027; 86592; 86706; 86762; 86803; 86850; 86900; 86901; 86920; 87806; 88307; G0378; J3490; J2270; J2405; J2590; J3475; U0003